=== PATIENT | female | born 2005 | race Caucasian/White ===

== ENCOUNTER 2024-04-14 06:18 | Day surgery (SDC) | payer MEDICAID, SELFPAY ==
--- NOTE | 2024-04-13 | POC_PTH ---
PATIENT: HENRI WALDROP LOC: [facility] [place] U#:[id number] AGE/SX: 18/F ROOM: RE04/14/[address]: Dr. Jennifer Ervin MD : 2005 BED: DIS: 04/14/2024 SPEC #: [id number] RECD: 04/14/24 11:11 STATUS: GILBERTO CRAWFORD #: [id number] TIMOTHY: 04/13/24 00:[address]: Jennifer Ervin DEPT: SURGICAL PATHOLOGY RECD BY: Bruno Grijalva ENTERED: 04/14/24 11:11 SP TYPE: PROD CONC OTHR DR: Dr. Guicho Monet MD Tissues: Product of conception, NOS Procedures: Surgery Specimen Level IV HEADER OPERATION: Dilation and curettage, suction, Anora testing PRE-OP DIAGNOSIS: Missed , 10 weeks gestation of TISSUE SUBMITTED: Products of conception MICROSCOPIC DIAGNOSIS Products of conception, dilation and curettage: [place], gestational endometrium and a few immature chorionic villi (products of conception), clinically missed . LYLA: 04/17/2024 COMMENT Results of Anora studies will be reported as an addendum. MICROSCOPIC DESCRIPTION Slides are reviewed. GROSS DESCRIPTION Received in without fixative is one container labeled with the patient's name and designated Products of conception for Anora testing. The specimen consists of multiple fragments of hemorrhagic soft tissue measuring in aggregate 10.0 x 9.0 x 2.0cm. No tissue is identified. A portion of tissue is submitted for Anora studies. Telecommunications Line Mechanic tissue is submitted in three cassettes. 04/17/2024 TC:5 CPT:56112 ADDENDUM ADDENDUM ADDENDUM ADDENDUM ADDENDUM ADDENDUM ADDENDUM ADDENDUM ADDENDUM ADDENDUM ADDENDUM ADDENDUM ADDENDUM 06/16/2024 13:26 ADDENDUM 06/16/2024 13:26 ADDENDUM 06/16/2024 13:26 ADDENDUM 06/16/2024 13:26 ADDENDUM 06/16/2024 13:26 ANORA MICROARRAY CHROMOSOME ANALYSIS WITH PARENTAL SUPPORT RESULT: Abnormal female MICROARRAY RESULT: arr (15)x3 CLINICAL INTERPRETATION: Abnormal result. Trisomy 15 detected. Trisomy 15 is generally incompatible with survival. Overall, trisomy is found in approximately 45% of miscarriages. Genetic counseling is recommended to discuss the significance of this result. Referral to a local genetic counselor may be considered. Please see complete report in e-chart or EMR
--- NOTE | 2024-04-13 11:01 | HP.PCM_ITS ---
History and Physical Date of Admission: 04/14/24 HPI: Recently with Covid and norovirus. Feeling better now. No cramping or bleeding. No FHR found on US today. Sri assisted in US images and confirmed no FHR Reviewed with pt options going forward. Allow to pass spontaneously, Cytotec, I PASS, and D&C. Is going to consider her options and let the office know. Reviewed HCG follow up if spontaneous passage of POC at home. Fetus measure 8 weeks OB History T0 L0 SAB0 IAB0 Ectopic0 Multiple0 Live Births0 Renewable Energy Consultant History LMP: 01/27/2024 (Exact Date), Age at Menarche: Age at First : Age at Menopause: Renewable [employer] Consultant History Comments: Sexual Activity: Yes; Male Contraception: No contraception data on record ? PAST MEDICAL HISTORY PAST MEDICAL HISTORY Diagnosis Date ? Acute recurrent tonsillitis 10/16/2018 ? Asthma ? Child in foster care 12/12/2018 ? Family disruption 12/12/2018 ? 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 High risk social situation 12/12/2018 ? Inappropriately high serum insulin 11/29/2018 ? Medical exam for child entering foster care 12/12/2018 ? Migraine with aura, not intractable, without status migrainosus 12/07/2023 ? Mild persistent allergic asthma without complication 06/23/2022 ? Prediabetes 12/12/2018 PAST SURGICAL HISTORY PAST SURGICAL HISTORY Procedure Laterality Date ? EXTRACTION ERUPTED TOOTH/EXR 2023 ? TONSILLECTOMY & ADENOIDECTOMY <AGE 10 FAMILY HISTORY FAMILY HISTORY Problem Relation Age of Onset ? Diabetes Maternal Grandmother ? Diabetes Paternal Grandfather ? Diabetes Paternal Aunt SOCIAL HISTORY Social History Tobacco Use ? Smoking status: Never Passive exposure: Yes ? Smokeless tobacco: Never Vaping Use ? Vaping status: current everyday user ? Substances: Nicotine Substance Use Topics ? Alcohol use: Never ? Drug use: Never CURRENT MEDICATIONS Current Outpatient Medications Medication Sig ? ondansetron HCl (ZOFRAN ORAL) Take by mouth. ? PNV no.95/ferrous fum/folic ac ( ORAL) Take by mouth. ? aspirin, enteric coated (ECOTRIN LOW STRENGTH) 81 mg EC tablet Take 1 tablet by mouth once daily. (Patient not taking: Reported on 03/21/2024) ? albuterol HFA (PROAIR HFA) 90 mcg/actuation inhaler Inhale 2 Puffs as instructed every 6 hours as needed. No current facility-administered medications for this visit. Allergies As of Date: 04/07/2024 (No Known Allergies) Fully Assessed 04/07/2024 REVIEW OF SYSTEMS Abdomen: No bloating, early satiety, indigestion, or increased flatulence. No abdominal pain, nausea, vomiting, diarrhea, or constipation. Bladder: No dysuria, gross hematuria, urinary frequency, urinary urgency, or incontinence. Breast: No breast lumps, nipple d/c, overlying skin changes, redness or skin retraction. Expanded ROS: N/A Allergies and current medication updated:Yes SENSITIVE EXAM: Sensitive exam not performed. EXAM: BP 138/82 Wt 243 lb 9.6 oz (110.5kg) LMP 01/27/2024 GENERAL: pleasant, female in no apparent distress HEENT: Normocephalic, atraumatic, mucus membranes moist, and no lesions NECK: full range of motion DERMATOLOGY: Normal, without lesions, non-icteric, and non-hirsute BREAST: deferred CHEST: Normal inspiratory effort ABDOMEN: Deferred PELVIC: deferred BIMANUAL: deferred NEURO: alert and oriented x3,exam grossly non-focal EXTREMITIES: normal ASSESSMENT AND PLAN: Assessment & Plan 10 weeks gestation of 8 week size, missed r//b/a to surgical vs expectant vs medical management reviewed, desires D&C in OR Assessment & Plan Assessment/Plan (1) Missed ab: (2) 10 weeks gestation of :
[2024-04-14] VITALS (10 sets, daily range): BP systolic 124–157; BP diastolic 56–98; PULSE 71–90; RESP 16; TEMP 36.4–36.6; O2SAT 99–100
[2024-04-14] MEDS: Acetaminophen 500 MG Tablet 1000 MG PO (06:35)
[2024-04-14] MEDS: Ketorolac 30 MG/ML Syringe IV (06:35)
[2024-04-14] MEDS: Doxycycline 100 MG CAPSULE 200 MG PO (06:35)
--- NOTE | 2024-04-14 06:47 | PRE.ANES_ITS ---
ASA Classification* ASA Classification ASA Classification: 2 Assessment & Plan Anesthesia* Anesthesia Assessment Anesthesia Assessment: Discussed sedation and/or anesthesia options, risks, benefits, and alternatives with patient/parents/legal guardian/POA. Questions invited. The patient/parents/legal guardian/POA seems to understand and agrees to proceed with anesthesia plan. Reviewed the physical assessment, medical history, allergy history and patient home medications list prior to surgery/procedure/anesthetic and documented any changes. Performed airway and anesthesia risk assessments. Anesthesia Type Anesthesia Type: MAC History Source History Obtained from:: Patient and Chart Anesthesia Focused Assessment* Temperature: 97.9 F Pulse Rate: 90 Blood Pressure: 152/82 Respiratory Rate: 16 Pulse Ox: 99 Oxygen Delivery Method: Room Air Airway Assessment Mouth opens: >3 cm Mallampati Score: I Teeth Condition: Intact Neck Range of motion (ROM): Full ROM Focused Labs Anesthesia Preop lab: CBC WBC Pending 04/14/24 06:32 RBC Pending 04/14/24 06:32 Hgb Pending 04/14/24 06:32 Hct Pending 04/14/24 06:32 Plt Count Pending 04/14/24 06:32 CHEMISTRY COAG HCG, Quant Pending 04/14/24 06:32 Pre-Assessment Diagnosis/Proposed Procedure Planned Operative Procedure(s): SUCTION D&C Anesthesia History Anesthesia History - transportation agent: Anesthesia History - transportation agent Hx Hospitalization No 04/13/24 11:46 Any Problems With Anesthesia No 04/13/24 11:46 Cholinesterase deficiency No 04/13/24 11:46 You/Your Family Experience No 04/13/24 11:46 fever (hyperthermia) with Relationship Recent Exposure to Contagious No 04/14/24 06:31 Disease Does patient have nerve No 04/13/24 11:46 stimulator Patient instructed to have device shut off --Does patient have Pacemaker No 04/14/24 06:31 or ICD? When Was Last Pacemaker Check QUESTION #4 FULL TEXT: You/Your Family Experience fever (hyperthermia) with Anesthesia Last Oral Intake Last Oral intake: Last Oral Intake NPO since 00:00 04/14/24 06:31 Meds taken in AM with sips of No 04/14/24 06:31 water? Meds patient instructed to take am of surgery PONV PONV - transportation agent: PONV - transportation agent Female Yes 04/13/24 11:46 HX of Motion Sickness No 04/13/24 11:46 HX of N/V After Surgery No 04/13/24 11:46 Non-Smoker Yes 04/13/24 11:46 Duration of Surgery greater No 04/13/24 11:46 than 60 minutes Number of Risk Factors 2 04/13/24 11:46 PONV Score Moderate Risk 04/13/24 11:46 Height & Weight Height & Weight: Anesthesia: Height & Weight Height 5 ft 8 in 04/14/24 06:31 Respiratory Assessment Respiratory Assessment - transportation agent: Respiratory Tract Infection Hx - transportation agent Hx Respiratory Tract Infection No 04/13/24 11:46 Any additional information?: Yes Hx Respiratory Tract Infection: Yes (Positive for Covid 2 weeks ago. completely recovered now.) STOP Sleep Apnea STOP Sleep Apnea - transportation agent: STOP Sleep Apnea - transportation agent Hx Hypertension No 04/13/24 11:46 Hx Sleep Apnea No 04/13/24 11:46 CPAP BIPAP Do you snore loudly (louder No 04/13/24 11:46 than talking or can be heard Do you often feel tired/ No 04/13/24 11:46 fatigued/ sleepy during daytime? Has anyone observed you stop No 04/13/24 11:46 breathing during sleep? STOP Results Negative 04/13/24 11:46 QUESTION #5 FULL TEXT : Do you snore loudly (louder than talking or can be heard through closed doors)? Tobacco Use History Tobacco Use History - transportation agent: Tobacco Use History - transportation agent Tobacco Use Smoking Status Never smoker 04/13/24 11:46 Hx Tobacco Use No 04/13/24 11:46 Years Smoking Packs Smoked per Day Smoking Cessation Date was within the last 15 years Hx Smoking Cessation Date Hx Smoking Cessation Counseling Hematologic Medial History Hematologic Hx - transportation agent: Hematologic Medical Hx - registration officer Hx of Blood Transfusion No 04/13/24 11:46 Hx of Transfusion in last 3 No 04/13/24 11:46 Months Date of Last Transfusion (if within last 3 months) Ever experience any problems No 04/13/24 11:46 with transfusion(s)? Specify any problems Hx of Preganancy in last 3 Yes 04/13/24 11:46 Months Nurse Filling Out Transfusion VCHRISTIN 04/13/24 11:46 & Questions: Date: 04/13/24 04/13/24 11:46 Time: 11:47 04/13/24 11:46 Patient unable to answer at this time (ie. confused, unrespo /Reproduction History /Reproductive History - transportation agent: /Reproductive Hx- transportation agent Hx Now Yes 04/13/24 11:46 Gestational Age (in weeks): EDC: Hx Hx Para Hx Section SAB No 04/13/24 11:46 Active Medications Active Medications: Current Medications Generic Name Dose Route Start Last Admin Trade Name Freq PRN Reason Stop Dose Admin Acetaminophen 1,000 mg 04/14/24 07:30 04/14/24 06:35 Acetaminophen 500 Mg Tablet PO 04/14/24 07:31 1,000 mg PREOP ONE Administration Doxycycline Monohydrate 200 mg 04/14/24 07:30 04/14/24 06:35 Doxycycline 100 Mg Capsule PO 04/14/24 07:31 200 mg PREOP ONE Administration Ketorolac Tromethamine 30 mg 04/14/24 07:30 04/14/24 06:35 Ketorolac 30 Mg/Ml Syringe IV 04/14/24 07:31 30 mg PREOP ONE Administration [facility] Medical History Migraine headache Non-smoker Asthma Home Medications ?Medication ?Instructions ?Recorded ?Last Taken ?Type albuterol sulfate 90 mcg/actuation 1 inh inhalation Q6H PRN shortness 04/13/24 Unknown History breath activated powder inhaler of breath or wheezing Allergy/AdvReac Type Severity Reaction Status Date / Time No Known Allergies Allergy Verified 04/13/24 11:41 Surgical History History of tonsillectomy and adenoidectomy Social History Smoking Status: Never smoker Review of Systems (Anesthesia) ROS Narrative System reviewed and no additional complaints, except as documented.
[2024-04-14 06:53] LABS: Absolute Neutrophil Count 9.2 X10^3/uL (2.0-7.7); Basophil# 0.04 X10^3/uL; Basophil% 0.3 % (0-1); Eosinophil# 0.33 X10^3/uL; Eosinophils% 2.4 % (0-5); Hematocrit 37.9 % (37-47); Hemoglobin 12.2 g/dL (12.0-15.0); Lymphocyte % 21.4 % (19-41); Mean Corp Hgb Conc 32.2 g/dL (32-36); Mean Corpuscular Hgb 24.5 pg (27.0-32.0); Mean Corpuscular Volume 76.1 fL (81-99); Mean Platelet Vol. 11.6 fl (6.2-12.0); Monocyte# 0.98 X10^3/uL; Monocyte% 7.2 % (0-10); NRBC Flagged by Analyzer 0 % (0-5); Neutrophil # 9.23 X10^3/uL (2.7-7.7); Neutrophil % 68.3 % (47-70); Platelet Count 250 K/mm3 (150-450); RBC Distribution Width CV 16.1 % (11.6-14.6); Red Blood Count 4.98 M/mm3 (4.2-5.4); White Blood Count 13.5 K/mm3 (4.4-11.0)
[2024-04-14 07:31] LABS: hCG Titer Quant., Serum 9734 mIU/mL (1-3)
--- NOTE | 2024-04-14 07:49 | DCINST_ITS ---
Discharge Instructions Diet Discharge Diet: No restrictions DC O2, CPAP, BIPAP needs Home O2 Discharge instructions: No Dressing / Incision Return to work on:: 04/17/24 May shower in (days): 1 May resume sexual activity in: 1 week Lifting Restrictions: none Dressing / Incision Call your doctor if your incision/area has: Sudden Increased Bleeding and Foul Smelling Discharge Call your doctor if you observe: Fever of 101 or Higher and Using more than 1 pad per hour (for 2 hrs in a row) Follow Up Care Please Follow Up With: Jennifer Ervin MD When: Call [phone] or send a Dubizzle message with nonurgent concerns and to schedule a follow up in 2-4 weeks Test Results: Test results from this visit will be discussed in further detail at your follow- up appointment, if applicable. Discharge Plan Admission Primary Reason for Your Visit: Suction D&C for a miscarriage Attending Provider: Jennifer Ervin Primary Care Provider: Guicho Monet Instructions Print Language: Cypriot Discharge Orders/Prescriptions Prescriptions: No Action albuterol sulfate 90 mcg/actuation aerosol powdr breath activated 1 inh inhalation Q6H PRN (Reason: shortness of breath or wheezing) Disposition Disposition (needs filled in before D/C Order can be placed): Home, Self Care
[2024-04-14] MEDS: Lidocaine 1%/Epi 1:200 (30ml) 30 ML AMPUL (08:11)
[2024-04-14] MEDS: Methylergonovine 0.2 MG/ML Ampul IM (08:20)
--- NOTE | 2024-04-14 08:24 | PCM.OPRPT ---
Problems Associated Problem List Diagnoses (1) 10 weeks gestation of : (2) Missed ab: Operative Report (Standard) Operative Information Date of Procedure: 04/14/24 Pre-Operative Diagnosis: missed Post-Operative Diagnosis: same Surgery/Procedure Performed: suction D&C hospitality ambassador: No Type of Anesthesia: MAC/Supplemental/Local RN Documented Start/Stop Times: Operation Date: 04/14/24 07:30 Case Time Into Pre-Op 04/14/24 06:22 Out of Pre-Op 04/14/24 07:36 Anesthesia Start 04/14/24 07:40 Into Room 04/14/24 07:40 Procedure Start 04/14/24 08:05 Procedure Start Time: 08:00 Procedure Stop Time: 08:21 Select all DRAINS/GRAFTS/IMPLANTS that apply: None Special Medications: none Estimated Blood Loss: 20 Fluids Replaced: 300 Specimen collected: Yes Description of specimen(s) removed: products of conception- pathology and anora testing Description of surgery: The patient was taken to the operating room where she was prepped and draped in a dorsolithotomy position. A bimanual examination was done and confirmed the uterus to be 8 weeks size and anteverted. A weighted speculum was placed in the vagina and the anterior lip of the cervix was grasped with a single-tooth tenaculum. The cervix was dilated serially. A 9 mm suction curette was placed to the uterine fundus and the suction was created. Several passes were made to remove clots and products of conception. When minimal tissue was returning a gentle sharp curettage was then done of the uterine cavity. The uterine cry was appreciated and another gentle pass was made with the suction curette. At this point there is no active bleeding from the uterus and minimal blood and no further products of conception were removed. The instruments removed from the cervix and the cervix was observed and no active bleeding was identified. The tenaculum was removed off the cervix and hemostasis of the tenaculum site was assured. Made of the instruments removed from the vagina and the vaginal sweep was completed by me. Sponge and needle counts were correct. The patient was taken to the recovery room in stable condition. Surgical Findings: normal cervix and vagina Complications Complications: No Admit VTE Documentation VTE Present on Admission: No VTE Mechan Device Prophylaxis: SCD's VTE Pharm Prophylaxis ordered?: No
--- NOTE | 2024-04-14 08:36 | PCM.POST.ANE ---
Anesthesia: Postop Eval I Current Vital Signs Temperature: 97.5 F Pulse Rate: 74 Blood Pressure: 125/72 Respiratory Rate: 16 Pulse Ox: 99 Oxygen Delivery Method: Room Air Assessment Airway patent: Yes Spontaneous unlabored respirations: Yes Mental status: Asleep (Arousable) nausea: No Vomiting: No Anesthesia Complication: No Fluid Hydration Crystalloid volume administer (ml): 300 Total IV fluid infused: 300 Progress Note Anesthesia document: Postop Eval 1 completed: Yes
--- NOTE | 2024-04-14 09:31 | PCM.POSTANE2 ---
Anesthesia Postop Eval I Sum Postop Eval Completion status Anesthesia document: Postop Eval 1 completed: Yes Anesthesia Postop Eval I Summary Anesthesia Postop Eval I Summary: Anesthesia Postop Eval I: Assessment Summary Airway patent Yes 04/14/24 08:38 Spontaneous unlabored Yes 04/14/24 08:38 respirations Mental status Asleep - Arousable 04/14/24 08:38 nausea No 04/14/24 08:38 Vomiting No 04/14/24 08:38 Anesthesia Postop Eval I: Fluid Summary Crystalloid volume administer 300 04/14/24 08:38 (ml) Colloids volume administered ( ml) Blood Product volume administered (ml) Total IV fluid infused 300 04/14/24 08:38 Anesthesia Postop Eval I: Summary Notes Anesthesia Complication No 04/14/24 08:38 Anesthesia Complication Comment: Post-operative progress note Anesthesia: Postop Eval II Evaluation Mental status: Awake Pain Level: 0 nausea: No Vomiting: No
[2024-04-17 10:46] LABS: Pathology Specimen OB SEE PATHOLOGY REPORT
== END 2024-04-14 10:05 | disposition home or self-care (01) ==
LOC: SDC 06:19 → AC 06:21
PROVIDERS: PCP Family Medicine; Referring Provider Obstetrics & Gynecology; Visit Provider Obstetrics & Gynecology
PROC: (CPT 59820; principal; 2024-04-14 07:15)
DX: O02.1 Missed abortion (principal); J45.909 Unspecified asthma, uncomplicated
CPT/HCPCS: 59820; 01965; 84702; 85025; 86850; 86900; 86901; 88305; A4216; J2405